=== PATIENT | male | born 1940 | race Hispanic/Latino ===

== ENCOUNTER 2019-01-02 10:01 | Emergency (ER) | payer MEDICARE ==
[2019-01-02 10:02] VITALS: PULSE 102
[2019-01-02 10:31] VITALS: BMI 20.6
[2019-01-02 10:36] VITALS: TEMP 97.7
[2019-01-02 11:31] LABS: PARTIAL THROMBOPLASTIN TIME 65.4 Seconds (26.9-38.3)
--- NOTE | 2019-01-02 11:31 | RAD ---
Date of service: 01/02/2019 PROCEDURE: Radiographs of the right elbow. HISTORY: elbow injury, swelling COMPARISON: No prior. TECHNIQUE: 3 views obtained. FINDINGS: BONES: Normal. No fracture. JOINTS: Normal. No osteoarthritis. SOFT TISSUES: Normal. JOINT EFFUSION: None. OTHER FINDINGS: None. IMPRESSION: Unremarkable radiographs of the right elbow.
--- NOTE | 2019-01-02 11:43 | ED PDOC ---
Arrival/HPI - General Chief Complaint: Upper Extremity Problem/Injury Historian: Patient - History of Present Illness Narrative History of Present Illness (Text): 78 y/o male with PMH of afib (on Coumadin) presents to the ED for evaluation of right elbow pain, bruising, and swelling x 2 days. Pt was using an exercise band when it slipped out from under his foot and a hard piece of plastic hit his right elbow. Pt developed a large hematoma over the elbow that has improved with ice. Pt here to be evaluated for persistent pain and bruising. Pt last had his INR checked 1 month ago, due to have it checked again in 4 days. Right elbow pain is worse with movement. Denies fever, chills, numbness, weakness, paresthesias, headache, dizziness, nausea, vomiting, diarrhea, back pain, joint pain elsewhere, or any other associated symptoms. 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 had several skin growths removed that were non-cancerous - Musculoskeletal/Rheumatological Hx Falls: No - Gastrointestinal Hx Gastrointestinal Disorders: No - Genitourinary/Gynecological Hx Genitourinary Disorders: No - Psychiatric Hx Psychophysiologic Disorder: No Hx Substance Use: No - Surgical History Hx Appendectomy: Yes (in childhood) Other/Comment: left carotid artery stent - Anesthesia Hx Anesthesia: Yes Hx Anesthesia Reactions: No Hx Malignant Hyperthermia: No Family/Social History - Physician Review Nursing Documentation Reviewed: Yes Family/Social History: No Known Family HX Smoking Status: Former Smoker Hx Alcohol Use: Yes Frequency of alcohol use: Socially Hx Substance Use: No Allergies/Home Meds Allergies/Adverse Reactions: Allergies No Known Allergies Allergy (Verified 01/02/19 10:31) Home Medications: Home Meds Medication Instructions Recorded Confirmed Warfarin [Coumadin] 3 mg PO DAILY 07/25/15 11/19/16 Sotalol [Betapace] 120 mg PO Q12 07/26/15 11/19/16 amLODIPine [Norvasc] 10 mg PO DAILY 07/26/15 11/19/16 Digoxin 0.125 mg PO DAILY 11/15/16 11/19/16 Ipratropium 0.02% [Atrovent] 0.2 % NEB PRN PRN 11/15/16 11/19/16 Review of Systems - Review of Systems Respiratory: Normal. absent: SOB, Cough Cardiovascular: Normal. absent: Chest Pain, Palpitations Gastrointestinal: Normal. absent: Abdominal Pain, Nausea, Vomiting Musculoskeletal: Other (right elbow pain, swelling) Skin: Other (bruising right elbow) Physical Exam Vital Signs Reviewed: Yes Vital Signs Temp Pulse Resp BP Pulse Ox 01/02/19 10:36 97.7 F 78 18 146/70 98 Temperature: Afebrile Blood Pressure: Normal Pulse: Regular Respiratory Rate: Normal Appearance: Positive for: Well-Appearing, Non-Toxic, Comfortable Pain Distress: None Mental Status: Positive for: Alert and Oriented X 3 - Systems Exam Head: Present: Atraumatic, Normocephalic Pupils: Present: PERRL Extroacular Muscles: Present: EOMI Conjunctiva: Present: Normal Mouth: Present: Moist Mucous Membranes Respiratory/Chest: Present: Clear to Auscultation, Good Air Exchange. No: Respiratory Distress, Accessory Muscle Use Cardiovascular: Present: Normal S1, S2 Upper Extremity: Present: Normal ROM (with pain to right elbow), NORMAL PULSES, Tenderness (posterior right elbow), Neurovascularly Intact, Capillary Refill < 2s, Other (large swollen hematoma over right posterior elbow). No: Cyanosis, Temperature Abnormalties, Deformity Lower Extremity: Present: Normal ROM Neurological: Present: GCS=15, CN II-XII Intact, Speech Normal, Motor Func Grossly Intact, Normal Sensory Function, Gait Normal Skin: Present: Warm, Dry, Other (ecchymomsis extending over posterior right elbow and proximal forearm). No: Rashes, Induration, Abscess, Abrasion Psychiatric: Present: Alert, Oriented x 3, Normal Insight, Normal Concentration, Normal Affect, Normal Mood Medical Decision Making ED Course and Treatment: Initial Plan: * Right elbow XR * Coags 11:40 Xray negative for fracture or dislocation 12:03 INR 4.55, supratherapeutic Spoke with Dr. Lewis who recommends surgical consult for possible hematoma drainage and basic bloodwork. 12:30 Spoke with resident care provider Dr. Valverde working under Dr. George who recommends conservative management with compression. Pt can followup in his office on Saturday. Call placed to Dr. Lewis. 13:[address] Lewis and informed her of diagnostic testing results. Recommends discharge home with followup in office tomorrow. Pt to hold coumadin until followup tomorrow. Patient verbalized understanding of instructions. Right elbow wrapped in MARYLOU bandage by me. Neurovascular exam remains unchanged. Diagnostic testing results and plan of care discussed with patient. Strict instructions given regarding importance of followup, and signs/symptoms to return to ER including headache, numbness, weakness, paresthesias, chest pain, or any other new/worsening symptoms. Pt verbalized understanding of discussion. Patient is A&Ox3, ambulating with steady gait, with vital signs stable for discharge. - Lab Interpretations Lab Results: APTT 65.4 Seconds (26.9-38.3) H 01/02/19 10:40 I have reviewed the lab results: Yes - RAD Interpretation Narrative RAD Interpretations (Text): 01/02/19 11:39 Right Elbow XR: FINDINGS: BONES: Normal. No fracture. JOINTS: Normal. No osteoarthritis. SOFT TISSUES: Normal. JOINT EFFUSION: None. OTHER FINDINGS: None. IMPRESSION: Unremarkable radiographs of the right elbow. Radiology Orders: 01/02/19 10:40 ELBOW RIGHT 3 VIEWS ROUTINE [RAD] Stat [employer] Manager: Radiologist Disposition/Present on Arrival - Present on Arrival Any Indicators Present on Arrival: No History of DVT/PE: No History of Uncontrolled Diabetes: No Urinary Catheter: No History of Decub. Ulcer: No History Surgical Site Infection Following: None - Disposition Have Diagnosis and Disposition been Completed?: Yes Diagnosis: Hematoma, Elevated INR, Elbow pain Disposition: HOME/ ROUTINE Disposition Time: 13:25 Condition: STABLE Discharge Instructions (ExitCare): What to Do When Your INR Is Too High Additional Instructions: HOLD COUMADIN TODAY AND TOMORROW Followup with Dr. Lewis in her office tomorrow Keep elbow compressed Apply warm compresses every other hour, 15 min at a time Followup with Dr. George in his office on Saturday Return to ER with any new/worsening symptoms Referrals: Eli Lewis MD [Primary Care Provider] - Follow up with primary Lalo George MD [Staff Provider] - Follow up with primary Forms: [employer] (Hungarian)
[2019-01-02 11:44] LABS: PROTHROMBIN TIME 51.4 SECONDS (9.4-12.5)
[2019-01-02 11:50] LABS: INR 4.55
[2019-01-02 12:36] LABS: ALB/GLOB RATIO 1.5 (1.1-1.8); ALBUMIN 4.7 g/dL (3.0-4.8); ALT/SGPT 16 U/L (7-56); AST/SGOT 29 U/L (17-59); BLOOD UREA NITROGEN 21 mg/dL (7-21); CALCIUM 10.2 mg/dL (8.4-10.5); GFR NON-AFRICAN AMERICAN > 60
--- NOTE | 2019-01-02 12:42 | CP.PCM.CON ---
History of Present Illness - History of Present Illness History of Present Illness: General surgery consult note for Dr. Manuel Valverde, PGY-2 Pt seen/examined in ED 1 78M w/PMH sig for CAD and Afib on Coumadin consulted for Right Elbow hematoma x 3 days. Pt reports weight lifting on Saturday when a rubber band snapped and hit him on the right elbow. The elbow became progressively swollen. Pt reports minimal pain to area, only with attempted flexion past 90 degrees, no pain on extension of RUE. Pt reports icing area for 2 days, is now placing heat on it with improvement in swelling (decreased). Denies changes in sensation/numbness/tingling of hands/fingers/arm, motor function, or strength, dizzness, SOB, CP, changes in bowel or bladder habits, bleeding in urine or stool. PMH: COPD, afib, CAD on Coumadin, HTN, HLD, DEVEN, skin tags PSH: Appendectomy All: NKDA SH: Admits to hx of tobacco use (1ppd x 50 yrs, quit in 2017), social ETOH use, denies illicit drug use FH: Non contributory PMD: Debbie Review of Systems - Review of Systems All systems: reviewed and no additional remarkable complaints except - Constitutional Constitutional: absent: Chills, Fever, Weakness - EENT Ears: absent: Dizziness - Cardiovascular Cardiovascular: absent: Chest Pain - Gastrointestinal Gastrointestinal: absent: Change in Bowel Habits, Hematemesis, Hematochezia, Melena - Genitourinary Genitourinary: absent: Change in Urinary Stream, Hematuria - Musculoskeletal Musculoskeletal: Joint Swelling (Right elbow). absent: Muscle Weakness, Numbness, Tingling - Neurological Neurological: absent: Dizziness - Psychiatric Psychiatric: absent: Change in Appetite Past Patient History - Infectious Disease Hx of Infectious Diseases: None - Past Social History Smoking Status: Former Smoker - CARDIAC Hx Cardiac Disorders: Yes (A-fib.) Hx Atrial Fibrillation: Yes Hx Cardia Arrhythmia: Yes Hx Hypertension: Yes - PULMONARY Hx Chronic Obstructive Pulmonary Disease (COPD): Yes - NEUROLOGICAL Hx Neurological Disorder: Yes Other/Comment: pt. 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 had several skin growths removed that were non-cancerous - MUSCULOSKELETAL/RHEUMATOLOGICAL Hx Falls: No - GASTROINTESTINAL Hx Gastrointestinal Disorders: No - GENITOURINARY/GYNECOLOGICAL Hx Genitourinary Disorders: No - PSYCHIATRIC Hx Psychophysiologic Disorder: No Hx Substance Use: No - SURGICAL HISTORY Hx Appendectomy: Yes (in childhood) Other/Comment: left carotid artery stent - ANESTHESIA Hx Anesthesia: Yes Hx Anesthesia Reactions: No Hx Malignant Hyperthermia: No Meds Allergies/Adverse Reactions: Allergies Allergy/AdvReac Type Severity Reaction Status Date / Time No Known Allergies Allergy Verified 01/02/19 10:31 Physical Exam - Constitutional Appears: Non-toxic, No Acute Distress - Head Exam Head Exam: ATRAUMATIC, NORMAL INSPECTION, NORMOCEPHALIC - Eye Exam Eye Exam: EOMI, Normal appearance - ENT Exam ENT Exam: Mucous Membranes Moist, Normal Exam - Neck Exam Neck exam: Positive for: Full Rom, Normal Inspection - Respiratory Exam Respiratory Exam: Clear to Auscultation Bilateral, NORMAL BREATHING PATTERN. absent: Prolonged Expiratory Phase, Rales, Rhonchi, Wheezes, Respiratory Distress - Cardiovascular Exam Cardiovascular Exam: REGULAR RHYTHM, +S1, +S2 - GI/Abdominal Exam GI & Abdominal Exam: Normal Bowel Sounds, Soft. absent: Distended, Firm, Tenderness - Extremities Exam Extremities exam: Negative for: full ROM (Right elbow with restricted ROM with flexion, cannot flex past 85%, has full extension. ) Additional comments: Right elbow with extensive ecchymoses over medial aspect, swelling and redness of lateral aspect over elbow- non tender to palpation. Radial pulse present and palpable. Full sensation intact over RUE. 5/5 clinical ob strength. - Neurological Exam Neurological exam: Alert, CN II-XII Intact, Oriented x3 - Psychiatric Exam Psychiatric exam: Normal Affect, Normal Mood - Skin Skin Exam: Dry, Intact, Normal Color, Warm Additional comments: Excluding extensive ecchymoses over right elbow medial and lateral aspect Results - Vital Signs Recent Vital Signs: Last Vital Signs Temp 97.7 F 01/02/19 10:36 Pulse 78 01/02/19 10:36 Resp 18 01/02/19 10:36 BP 146/70 01/02/19 10:36 Pulse Ox 98 01/02/19 10:36 - Labs Labs: Laboratory Results - last 24 hr 01/02/19 10:40 PT 51.4 H INR 4.55 H* APTT 65.4 H Assessment & Plan - Assessment and Plan (Free Text) Assessment: 78M w/PMH sig for CAD and Afib on Coumadin consulted for R elbow hematoma s/p trauma on 12/30- improving swelling Plan: Recommend warm compresses or heat to area Recommend MARYLOU bandage for compression Follow up with Dr. George in the office as needed Hold Coumadin Recheck INR tomorrow Cleared for d/c home from surgical standpoint No surgical intervention at this time DW Dr. Ariel Valverde, PGY-2 - Date & Time Date: 01/02/19 Time: 12:45
[2019-01-02 12:51] LABS: BASO # 0.04 K/mm3 (0.0-2.0); BASO % 0.5 % (0.0-3.0); EOS # 0.2 (0.0-0.7); HEMOGLOBIN 15.2 g/dL (14.0-18.0); LYMPH # 1.4 (1.2-3.4); MEAN CELL VOLUME 92.7 fl (80.0-105.0); MEAN CORPUSCULAR HEMOGLOBIN 30.6 pg (25.0-35.0); MEAN PLATELET VOLUME 9.8 fl (7.0-11.0); MONO # 0.4 (0.1-0.6); MONO % 4.9 % (1.0-6.0); RBC 4.96 10^6/uL (3.5-6.1); RED CELL DISTRIBUTION WIDTH 14.7 % (11.5-14.5); WHITE BLOOD COUNT 8.4 10^3/uL (4.5-11.0)
[2019-01-02 13:31] VITALS: BP 135/72; PULSE 75; RESP 16; O2SAT 99
== END 2019-01-02 13:30 | disposition home or self-care (01) ==
LOC: ED 10:01
DX: S50.01XA Contusion of right elbow, initial encounter (principal); W22.8XXA Striking against or struck by other objects, initial encounter; R79.1 Abnormal coagulation profile; M25.521 Pain in right elbow; I48.91 Unspecified atrial fibrillation; I10 Essential (primary) hypertension; Z79.01 Long term (current) use of anticoagulants; Z87.891 Personal history of nicotine dependence